=== PATIENT | female | born 1945 | race Two or more races ===

== ENCOUNTER 2017-10-17 13:52 | Outpatient (CLI) | payer OTHER | END 2017-10-17 13:58 | disposition home or self-care (01) | LOC: MAMO-SONO 13:52 | DX: Z12.31 Encounter for screening mammogram for malignant neoplasm of breast (principal); Z87.898 Personal history of other specified conditions; N60.12 Diffuse cystic mastopathy of left breast; N60.11 Diffuse cystic mastopathy of right breast; R73.09 Other abnormal glucose; I12.9 Hypertensive chronic kidney disease with stage 1 through stage 4 chronic kidney disease, or unspecified chronic kidney disease; Z68.38 Body mass index [BMI] 38.0-38.9, adult; E66.01 Morbid (severe) obesity due to excess calories; M17.9 Osteoarthritis of knee, unspecified; M54.5 Low back pain; E78.5 Hyperlipidemia, unspecified ==

== ENCOUNTER 2018-07-03 10:58 | Inpatient (IN) | payer OTHER ==
[~2018-07-03] VITALS: Ht 167.6 cm; Wt 110.2 kg
[2018-07-25] MEDS ORDERED: COZAAR100 MG PO (09:58)
[2018-07-25] MEDS ORDERED: TRAMADOL HCL50 MG PO (09:58)
[2018-07-25] MEDS ORDERED: PROTONIX40 MG PO (09:59)
[2018-07-25] MEDS ORDERED: HYDROCHLOROTHIA25 MG PO (09:59)
[2018-07-25] MEDS ORDERED: LIPITOR20 MG PO (09:59)
[2018-07-25] MEDS ORDERED: MOTRIN IB200 MG PO (10:00)
== END 2018-08-01 17:15 | DRG 470 ==
LOC: O/R 07-30 06:20 → SURH 07-30 06:20
PROVIDERS: ADMIT Orthopaedic Surgery
PROC: 0SRC0J9 Replacement of Right Knee Joint with Synthetic Substitute, Cemented, Open Approach (ICD-10-PCS; principal; 2018-07-30 07:00)
DX: M17.11 Unilateral primary osteoarthritis, right knee (principal); D62 Acute posthemorrhagic anemia; I10 Essential (primary) hypertension; E78.2 Mixed hyperlipidemia

== ENCOUNTER → 2018-07-16 | Outpatient (CLI) | payer OTHER | END | disposition home or self-care (01) | LOC: RAD 09:56 | DX: R07.89 Other chest pain (principal) ==

== ENCOUNTER 2018-07-18 09:46 | Outpatient (CLI) | payer OTHER | END 2018-07-18 13:27 | disposition home or self-care (01) | LOC: EKG 09:46 | DX: I10 Essential (primary) hypertension (principal) ==

== ENCOUNTER 2018-08-01 18:47 | Emergency (ER) | payer OTHER ==
[~2018-08-01] VITALS: Ht 167.6 cm; Wt 108.9 kg
[~2018-08-01 18:47] MED LIST: COZAAR100 MG PO; HYDROCHLOROTHIA25 MG PO; LIPITOR20 MG PO; MOTRIN IB200 MG PO; PROTONIX40 MG PO; TRAMADOL HCL50 MG PO
== END 2018-08-02 19:21 | disposition home or self-care (01) ==
LOC: ER 18:47
DX: I16.0 Hypertensive urgency (principal); I10 Essential (primary) hypertension

== ENCOUNTER 2018-08-03 01:58 | Emergency (ER) | payer OTHER ==
[~2018-08-03] VITALS: Ht 167.6 cm; Wt 136.1 kg
== END 2018-08-03 20:37 | disposition home or self-care (01) ==
LOC: ER 01:58
DX: I16.0 Hypertensive urgency (principal); I10 Essential (primary) hypertension

== ENCOUNTER 2018-12-04 09:29 | Outpatient (CLI) | payer OTHER | END 2018-12-04 09:32 | disposition home or self-care (01) | LOC: MRI 09:29 | DX: M54.5 Low back pain (principal) | CPT/HCPCS: 72148 ==

== ENCOUNTER → 2019-02-10 | Outpatient (CLI) | payer OTHER | END | disposition home or self-care (01) | LOC: MAMO-SONO 09:40 | DX: Z12.31 Encounter for screening mammogram for malignant neoplasm of breast (principal); Z87.898 Personal history of other specified conditions ==

== ENCOUNTER 2019-02-17 11:17 | Outpatient (CLI) | payer OTHER | END 2019-02-17 11:24 | disposition home or self-care (01) | LOC: NUCLEAR 11:17 | DX: M81.0 Age-related osteoporosis without current pathological fracture (principal); Z13.820 Encounter for screening for osteoporosis ==

== ENCOUNTER 2019-05-18 09:16 | Inpatient (IN) | payer OTHER ==
[~2019-05-18] VITALS: Ht 167.6 cm; Wt 107.5 kg
[2019-05-18] MEDS ORDERED: PLAVIX75 MG PO (09:21)
[2019-05-18] MEDS ORDERED: ECOTRIN81 MG PO (09:22)
== END 2019-05-30 18:37 | disposition home or self-care (01) | DRG 438 ==
LOC: ER 09:16 → MEDJ 16:55
PROVIDERS: ADMIT Internal Medicine
PROC: BW40ZZZ Ultrasonography of Abdomen (ICD-10-PCS; 2019-05-18)
PROC: BF37ZZZ Magnetic Resonance Imaging (MRI) of Pancreas (ICD-10-PCS; principal; 2019-05-19)
PROC: BW28ZZZ Computerized Tomography (CT Scan) of Head (ICD-10-PCS; 2019-05-22)
PROC: 4A12X4Z Monitoring of Cardiac Electrical Activity, External Approach (ICD-10-PCS; 2019-05-22)
PROC: 4A033R1 Measurement of Arterial Saturation, Peripheral, Percutaneous Approach (ICD-10-PCS; 2019-05-22)
PROC: 3E0F7GC Introduction of Other Therapeutic Substance into Respiratory Tract, Via Natural or Artificial Opening (ICD-10-PCS; 2019-05-24)
DX: K85.10 Biliary acute pancreatitis without necrosis or infection (principal); I21.4 Non-ST elevation (NSTEMI) myocardial infarction; J80 Acute respiratory distress syndrome; Q61.01 Congenital single renal cyst; E87.2 Acidosis; J44.1 Chronic obstructive pulmonary disease with (acute) exacerbation; J45.41 Moderate persistent asthma with (acute) exacerbation; E86.0 Dehydration; E87.8 Other disorders of electrolyte and fluid balance, not elsewhere classified; I25.10 Atherosclerotic heart disease of native coronary artery without angina pectoris; I70.0 Atherosclerosis of aorta; I25.118 Atherosclerotic heart disease of native coronary artery with other forms of angina pectoris; I10 Essential (primary) hypertension; K59.09 Other constipation; G47.33 Obstructive sleep apnea (adult) (pediatric); E66.09 Other obesity due to excess calories; M62.81 Muscle weakness (generalized)

== ENCOUNTER 2019-06-01 17:25 | Emergency (ER) | payer OTHER ==
[~2019-06-01] VITALS: Ht 167.6 cm; Wt 107.5 kg
[~2019-06-01 17:25] MED LIST changes: +ECOTRIN81 MG PO; +PLAVIX75 MG PO
[2019-06-01] MEDS ORDERED: ISOSORBIDE DINI30 MG (17:35)
[2019-06-01] MEDS ORDERED: ZESTRIL10 M1 (17:35)
[2019-06-01] MEDS ORDERED: PEPCID AC20 MG (17:35)
[2019-06-01] MEDS ORDERED: DOXAZOSIN MESYLA2 MG (17:36)
[2019-06-01] MEDS ORDERED: MICROZIDE12.5 MG (17:36)
[2019-06-01] MEDS ORDERED: TOPROL XL25 M1 (17:36)
== END 2019-06-01 21:00 | disposition home or self-care (01) ==
LOC: ER 17:25
DX: S00.83XA Contusion of other part of head, initial encounter (principal); W18.09XA Striking against other object with subsequent fall, initial encounter; Y93.89 Activity, other specified; Y92.098 Other place in other non-institutional residence as the place of occurrence of the external cause; Y99.8 Other external cause status

== ENCOUNTER → 2020-03-01 | Outpatient (CLI) | payer OTHER ==
[~2020-03-01] MED LIST changes: +DOXAZOSIN MESYLA2 MG; +ISOSORBIDE DINI30 MG; +MICROZIDE12.5 MG; +PEPCID AC20 MG; +TOPROL XL25 M1; +ZESTRIL10 M1
== END | disposition home or self-care (01) ==
LOC: TOM 10:43
PROVIDERS: ATTEND Emergency Medicine
DX: G31.89 Other specified degenerative diseases of nervous system (principal); M54.16 Radiculopathy, lumbar region

== ENCOUNTER 2020-03-03 09:05 | Outpatient (CLI) | payer OTHER | END 2020-03-03 09:17 | disposition home or self-care (01) | LOC: NUCLEAR 09:05 | PROVIDERS: ATTEND Internal Medicine Cardiovascular Disease | DX: I77.1 Stricture of artery (principal); I65.02 Occlusion and stenosis of left vertebral artery ==

== ENCOUNTER 2020-04-29 11:01 | Outpatient (CLI) | payer OTHER | END 2020-04-29 11:22 | disposition home or self-care (01) | LOC: NUCLEAR 11:01 | PROVIDERS: ATTEND Internal Medicine Cardiovascular Disease | DX: I70.213 Atherosclerosis of native arteries of extremities with intermittent claudication, bilateral legs (principal) ==

== ENCOUNTER 2021-03-16 10:33 | Outpatient (CLI) | payer OTHER | END 2021-03-16 10:49 | disposition home or self-care (01) | LOC: MAMO-SONO 10:33 | PROVIDERS: ATTEND General Practice | DX: R92.0 Mammographic microcalcification found on diagnostic imaging of breast (principal); R26.2 Difficulty in walking, not elsewhere classified; R73.03 Prediabetes; I25.119 Atherosclerotic heart disease of native coronary artery with unspecified angina pectoris; I51.7 Cardiomegaly; I25.2 Old myocardial infarction; I70.8 Atherosclerosis of other arteries; Z98.61 Coronary angioplasty status; Z68.39 Body mass index [BMI] 39.0-39.9, adult; J43.8 Other emphysema; K29.40 Chronic atrophic gastritis without bleeding; M47.817 Spondylosis without myelopathy or radiculopathy, lumbosacral region; Z13.820 Encounter for screening for osteoporosis; I73.89 Other specified peripheral vascular diseases; N18.31 Chronic kidney disease, stage 3a; L40.8 Other psoriasis; D69.2 Other nonthrombocytopenic purpura; E78.2 Mixed hyperlipidemia; Z12.31 Encounter for screening mammogram for malignant neoplasm of breast ==

== ENCOUNTER 2021-03-22 13:16 | Outpatient (CLI) | payer OTHER | END 2021-03-22 13:22 | disposition home or self-care (01) | LOC: NUCLEAR 13:16 | PROVIDERS: ATTEND General Practice | DX: M81.0 Age-related osteoporosis without current pathological fracture (principal); Z13.89 Encounter for screening for other disorder ==

== ENCOUNTER 2021-07-11 10:38 | Outpatient (CLI) | payer OTHER | END 2021-07-11 10:47 | disposition home or self-care (01) | LOC: TOM 10:38 | PROVIDERS: ATTEND Emergency Medicine | DX: M54.16 Radiculopathy, lumbar region (principal); M62.838 Other muscle spasm ==

== ENCOUNTER 2021-11-17 08:52 | Outpatient (CLI) | payer OTHER | END 2021-11-17 08:59 | disposition home or self-care (01) | LOC: MRI 08:52 | PROVIDERS: ATTEND Student in an Organized Health Care Education/Training Program | DX: R10.2 Pelvic and perineal pain (principal); N95.0 Postmenopausal bleeding | CPT/HCPCS: 72197; Q9965; 72196 ==

== ENCOUNTER 2022-02-09 04:56 | Inpatient (IN) | payer OTHER ==
[~2022-02-09] VITALS: Ht 167.6 cm; Wt 220.0 kg
--- NOTE | 2022-02-09 05:21 | NUR ---
SE RECIBE PTE FEMENINA EN AMBULANCIA ALERTA Y ORIENTADA X3, QUIEN REFIERE VENIR POR HBP Y ESTUVO AQUI HACE DOS GALVEZ POR LA MISMA JACINTA. PTE TIENE 1X EPISODIO DE VOMITO MIENTRAS SE REALIZA TRIAGE. SE REBECA S/V Y SE UBICA PTE EN ICU.
--- NOTE | 2022-02-09 05:36 | NUR ---
SE EDUCA A PTE SOBRE TX MEDICO ESTA REFIERE ENTENDER. SE REBECA MUESTRAS DE LABORATORIO UTILIZANDO MEDIDAS ASEPTICAS. SE COLOCA H/L A PTE, PTE CON H/L COLOCADO POR PERSONAL PARAMEDICO. SE ADMINISTRAN MEDICAMENTOS LOS CUALES TOLERA. SE NOTIFICAN ABGS Y RX PENDIENTES A REALIZAR. SE COLOCA CN A 2LTS. PTE SE CONTINUA MONITORIANDO POR CAMBIOS.
--- NOTE | 2022-02-09 07:00 | NUR ---
SE RECIBE PACIENTE DEL TURNO ANTERIOR ALERTA Y ORIENTADA X3, LA MISMA SE ENCUENTRA UBICADA EN REVA CON BARANDAS ELEVADAS POR PRECUACION A CAIDAS, SE LE ORIENTA A PACIENTE SOBRE CONTINUIDAD DE TX Y LA MISMA VERBALIZA ENTENDER. SE OBSERVA CON CANULA NASAL A 2LT. CANALIZA EN AMBOS BRAZOS, VENOPUNCIONES PATENTES, LIBRES DE EDEMA Y ERITEMA, SE OBSERVA TRIDIL 50MG/250ML BAJANDO A 3 ML/HR. SE MONITOREAN PRESION MANUAL, SE MANTIENE PACIENTE BAJO OBSERVACION POR CAMBIOS EN TX MEDICO.
--- NOTE | 2022-02-09 08:29 | NUR ---
PRESION MANUEAL TOMADA POR DR LONG 180/90 QUIEN BHAVANA ADMINISTRAR VASOTEC 1.25MG IV STAT, SE EJECUTA ORDEN MEDICA, DR BATEMAN SUBIR TRIDIL A 6ML/HR, SE EJECTURA ORDEN MEDICA.
[2022-02-11] MEDS ORDERED: LISINOPRIL20 MG PO (17:30)
[2022-02-11] MEDS ORDERED: ST. JOSEPH ASPI81 M2 PO (17:30)
[2022-02-11] MEDS ORDERED: LIPITOR40 MG PO (17:30)
[2022-02-11] MEDS ORDERED: ISOSORBIDE MONO30 MG PO (17:30)
[2022-02-11] MEDS ORDERED: TOPROL XL50 M1 PO (17:30)
[2022-02-11] MEDS ORDERED: CARdura 2MG TABLET PO (17:30)
[2022-02-11] MEDS ORDERED: CLOPIDOGREL BIS75 MG PO (17:30)
[2022-02-11] MEDS ORDERED: APRESOLINE 10MG10 MG PO (17:30)
== END 2022-02-11 19:41 | disposition home or self-care (01) | DRG 305 ==
LOC: ER 04:56 → ICU-2 14:23 → SURH 02-10 19:29
PROVIDERS: ADMIT Internal Medicine; ATTEND Internal Medicine
PROC: BW28ZZZ Computerized Tomography (CT Scan) of Head (ICD-10-PCS; principal; 2022-02-09)
PROC: B246ZZZ Ultrasonography of Right and Left Heart (ICD-10-PCS; 2022-02-09)
DX: I16.1 Hypertensive emergency (principal); E11.9 Type 2 diabetes mellitus without complications; E78.2 Mixed hyperlipidemia; E66.8 Other obesity; Z68.35 Body mass index [BMI] 35.0-35.9, adult; Z79.4 Long term (current) use of insulin; Z87.891 Personal history of nicotine dependence

== ENCOUNTER 2022-04-18 07:52 | Outpatient (CLI) | payer OTHER ==
[~2022-04-18 07:52] MED LIST changes: +APRESOLINE 10MG10 MG PO; +CARdura 2MG TABLET PO; +CLOPIDOGREL BIS75 MG PO; +ISOSORBIDE MONO30 MG PO; +LIPITOR40 MG PO; +LISINOPRIL20 MG PO; +ST. JOSEPH ASPI81 M2 PO; +TOPROL XL50 M1 PO
== END 2022-04-18 09:26 | disposition home or self-care (01) ==
LOC: TOM 07:52
PROVIDERS: ATTEND Urology
DX: R31.29 Other microscopic hematuria (principal)
CPT/HCPCS: 74178; Q9965

== ENCOUNTER 2022-05-23 08:51 | Outpatient (CLI) | payer OTHER ==
[~2022-05-23 08:51] MED LIST changes: +DICY20TA PO; +PEPCID AC20 MG PO
== END 2022-05-23 09:04 | disposition home or self-care (01) ==
LOC: MAMO-SONO 08:51
PROVIDERS: ATTEND General Practice
DX: R92.0 Mammographic microcalcification found on diagnostic imaging of breast (principal)

== ENCOUNTER 2022-05-26 11:26 | Outpatient (CLI) | payer OTHER | END 2022-05-26 11:36 | disposition home or self-care (01) | LOC: PPH VACUNA 11:26 | PROVIDERS: ATTEND Emergency Medicine Pediatric Emergency Medicine | DX: Z23 Encounter for immunization (principal) ==

== ENCOUNTER 2022-09-19 10:31 | Outpatient (CLI) | payer OTHER | END 2022-09-19 10:33 | disposition home or self-care (01) | LOC: RAD 10:31 | DX: M54.50 Low back pain, unspecified (principal) ==

== ENCOUNTER 2022-11-02 13:37 | Outpatient (CLI) | payer OTHER | END 2022-11-02 13:41 | disposition home or self-care (01) | LOC: RAD 13:37 | DX: I11.9 Hypertensive heart disease without heart failure (principal); E66.9 Obesity, unspecified ==

== ENCOUNTER 2023-02-16 09:41 | Outpatient (CLI) | payer OTHER ==
[~2023-02-16 09:41] MED LIST changes: +DUI500 PO; +INTESTINEX680 M1 PO; +LOKELMA5 GM PO; +ZOFRAN8 MG PO
== END 2023-02-16 09:48 | disposition home or self-care (01) ==
LOC: NUCLEAR 09:41
PROVIDERS: ATTEND General Practice
DX: I25.10 Atherosclerotic heart disease of native coronary artery without angina pectoris (principal); I73.9 Peripheral vascular disease, unspecified; R26.2 Difficulty in walking, not elsewhere classified; Z98.61 Coronary angioplasty status; I13.10 Hypertensive heart and chronic kidney disease without heart failure, with stage 1 through stage 4 chronic kidney disease, or unspecified chronic kidney disease; I25.2 Old myocardial infarction; R06.02 Shortness of breath; R06.09 Other forms of dyspnea

== ENCOUNTER 2023-03-27 07:27 | Outpatient (CLI) | payer OTHER | END 2023-03-27 07:30 | disposition home or self-care (01) | LOC: SONOGRAMA 07:27 | PROVIDERS: ATTEND General Practice | DX: R10.10 Upper abdominal pain, unspecified (principal); R19.7 Diarrhea, unspecified ==

== ENCOUNTER 2023-07-07 08:43 | Emergency (ER) | payer OTHER ==
[~2023-07-07] VITALS: Ht 167.6 cm; Wt 98.0 kg
[2023-07-07] MEDS ORDERED: TRAMADOL HCL50 MG (08:53)
[2023-07-07] MEDS ORDERED: CRESTOR10 MG (08:54)
[2023-07-07] MEDS ORDERED: PEPCID20 MG (08:54)
[2023-07-07 09:47] LABS: HEMATOCRIT 37.9 % (36.0-45.00); HEMOGLOBIN 12.6 g/dL (12.0-15.00); MEAN CELL VOLUME 91.3 fL (80.00-100.00); MEAN CORPUSCULAR HEMOGLOBIN 30.5 pg (27.00-32.0); MEAN CORPUSCULAR HGB CONC 33.4 g/dl (32.0-36.0); PLATELET COUNT 192 K/uL (150-450); RED BLOOD COUNT 4.15 M/uL (4.00-6.00); RED CELL DISTRIBUTION WIDTH 14.8 % (11.5-14.5)
[2023-07-07 10:12] LABS: ALBUMIN 3.5 gm/dL (3.4-5.0); BILIRUBIN TOTAL 0.3 mg/dL (0.3-1.2); CALCIUM 9.9 mg/dL (8.5-10.1); CREATININE SERUM 1.07 mg/dL (0.55-1.02); GFR 49.47; GLOBULINA 3.4 G/DL (2.4-3.5); POTASSIUM 5.48 mEq/L (3.5-5.1); TOTAL PROTEIN 6.9 gm/dL (6.4-8.2)
== END 2023-07-07 11:14 | disposition home or self-care (01) ==
LOC: ER 08:43
PROVIDERS: General Practice
DX: K80.50 Calculus of bile duct without cholangitis or cholecystitis without obstruction (principal); I11.9 Hypertensive heart disease without heart failure; Z86.73 Personal history of transient ischemic attack (TIA), and cerebral infarction without residual deficits

== ENCOUNTER 2024-01-15 09:10 | Outpatient (CLI) | payer OTHER ==
[~2024-01-15 09:10] MED LIST changes: +CRESTOR10 MG; +IRBESARTAN-HCT1 EACH; +LIPITOR40 MG; +PEPCID20 MG; +PLAVIX75 MG; +TRAMADOL HCL50 MG
== END 2024-01-15 09:16 | disposition home or self-care (01) ==
LOC: TOM 09:10
PROVIDERS: ATTEND General Practice
DX: M51.36 Other intervertebral disc degeneration, lumbar region (principal)

== ENCOUNTER 2024-02-07 09:19 | Outpatient (CLI) | payer OTHER | END 2024-02-07 09:25 | disposition home or self-care (01) | LOC: MAMO-SONO 09:19 | PROVIDERS: ATTEND General Practice | DX: Z12.31 Encounter for screening mammogram for malignant neoplasm of breast (principal) ==

== ENCOUNTER 2024-10-07 10:40 | Outpatient (CLI) | payer OTHER | END 2024-10-07 10:50 | disposition home or self-care (01) | LOC: RAD 10:40 | PROVIDERS: ATTEND General Practice | DX: M25.512 Pain in left shoulder (principal) ==

== ENCOUNTER 2024-11-25 10:49 | Outpatient (CLI) | payer OTHER | END 2024-11-25 10:56 | disposition home or self-care (01) | LOC: SONOGRAMA 10:49 | PROVIDERS: ATTEND General Practice | DX: R59.0 Localized enlarged lymph nodes (principal) ==

== ENCOUNTER 2025-02-09 08:43 | Outpatient (CLI) | payer OTHER | END 2025-02-09 08:51 | disposition home or self-care (01) | LOC: MAMO-SONO 08:43 | PROVIDERS: ATTEND Specialist | DX: R59.0 Localized enlarged lymph nodes (principal); Z80.3 Family history of malignant neoplasm of breast ==